=== PATIENT | male | born 1950 | race Caucasian/White ===

== ENCOUNTER 2017-11-04 11:42 | Inpatient (IN) | payer MEDICARE, OTHER ==
[2017-11-04] VITALS (10 sets, daily range): BP systolic 76–157; BP diastolic 57–98; Ht 170.2 cm; Wt 74.8 kg
[~2017-11-04] VITALS: Ht 170.2 cm; Wt 74.8 kg
[~2017-11-04 11:42] MED LIST: AMLODIPINE BESYL5 M1 PO; ATA25 PO; ATENOLOL25 MG PO; CAT0.1 PO; CLONIDINE HCL0.1 MG PO; FENOFIBRATE160 M1 PO; FERROUS SULFAT325 M2 PO; ISOSORBIDE MONO30 MG PO; KEFLEX500 MG PO; LAC PO; MIN10 PO; MIN2.5 PO; NEP PO; NOR5 PO; PHEDML PO; PHOSLO667 MG PO; SODIUM BICARBO650 MG PO; TEN50 PO; VITAMIN C500 M2 PO; ZES20 PO; ZITHROMAX TRI-500 MG PO
[2017-11-04 13:31] LABS: PLATELET COUNT 178 x10^3mcL (130-400)
[2017-11-04 13:47] LABS: BILIRUBIN TOTAL 0.76 mg/dL (0.20-1.00); CALCIUM 8.8 mg/dL (8.5-10.1); CARBON DIOXIDE 27.6 mmol/L (21-32); POTASSIUM SERUM 4.2 mmol/L (3.5-5.1)
[2017-11-04 13:49] LABS: ALBUMIN 3.2 g/dL (3.4-5.0); CREATININE SERUM 9.8 mg/dL (0.7-1.3); RED CELL DISTRIBUTION WIDTH 14.8 % (11.5-14.5); TOTAL PROTEIN, SERUM 8.5 g/dL (6.4-8.2)
[2017-11-04 13:59] LABS: BAND NEUTROPHIL 5 % (0-10); SEGMENTED NEUTROPHILS 72 % (37-75)
[2017-11-04 14:00] LABS: MONOCYTE 5 % (0-7); rbc morphology (normal/abnorm) NORMAL (NORMAL)
[2017-11-04 14:46] LABS: MAGNESIUM 2.3 mg/dL (1.8-2.4)
[2017-11-04 14:55] LABS: T3 TOTAL 0.43 ng/mL
[2017-11-04 14:56] LABS: FREE T4 0.75 ng/dL (0.76-1.46); FREE THYROXINE INDEX 1.5 ug/dL (1.4-4.5); T4(THYROXINE) 5.2 ug/dL (4.7-13.3)
[2017-11-04 15:48] LABS: FREE T4 0.75 ng/dL (0.76-1.46)
[2017-11-05] VITALS (19 sets, daily range): BP systolic 87–142; BP diastolic 54–84
[2017-11-05 05:29] LABS: RED CELL DISTRIBUTION WIDTH 14.4 % (11.5-14.5)
[2017-11-05 05:35] LABS: PLATELET COUNT 123 x10^3mcL (130-400)
[2017-11-05 05:44] LABS: CALCIUM 8.1 mg/dL (8.5-10.1); PHOSPHOROUS 4.2 mg/dL (2.5-4.9)
[2017-11-05 05:47] LABS: CREATININE SERUM 10.7 mg/dL (0.7-1.3)
[2017-11-05 10:52] LABS: ATYPICAL LYMPH 1 %; BAND NEUTROPHIL 13 % (0-10); BASOPHIL 0 % (0-2); MONOCYTE 2 % (0-7); PLATELET MORPHOLOGY PLATELETS DECREASED; SEGMENTED NEUTROPHILS 82 % (37-75); rbc morphology (normal/abnorm) ABNORMAL (NORMAL)
[2017-11-06] VITALS (16 sets, daily range): BP systolic 108–157; BP diastolic 40–72
[2017-11-06 05:20] LABS: BASOPHIL % 0.2 % (0-2); PLATELET COUNT 129 x10^3mcL (130-400); RED CELL DISTRIBUTION WIDTH 14.4 % (11.5-14.5)
[2017-11-06 05:34] LABS: CALCIUM 8.1 mg/dL (8.5-10.1); CARBON DIOXIDE 27.4 mmol/L (21-32); MAGNESIUM 1.6 mg/dL (1.8-2.4); PHOSPHOROUS 4.2 mg/dL (2.5-4.9); POTASSIUM SERUM 3.8 mmol/L (3.5-5.1)
[2017-11-06 05:37] LABS: CREATININE SERUM 8.1 mg/dL (0.7-1.3)
[2017-11-07] VITALS (14 sets, daily range): BP systolic 90–178; BP diastolic 37–103
[2017-11-07 05:30] LABS: BASOPHIL % 0.2 % (0-2); PLATELET COUNT 124 x10^3mcL (130-400); RED CELL DISTRIBUTION WIDTH 14.7 % (11.5-14.5)
[2017-11-07 05:39] LABS: CALCIUM 8.4 mg/dL (8.5-10.1); CARBON DIOXIDE 27.5 mmol/L (21-32); PHOSPHOROUS 4.3 mg/dL (2.5-4.9); POTASSIUM SERUM 3.7 mmol/L (3.5-5.1)
[2017-11-07 05:41] LABS: CREATININE SERUM 6.1 mg/dL (0.7-1.3)
[2017-11-07 11:00] LABS: CALCIUM 8.5 mg/dL (8.5-10.1); CARBON DIOXIDE 25.8 mmol/L (21-32); POTASSIUM SERUM 3.7 mmol/L (3.5-5.1)
[2017-11-07 11:08] LABS: CREATININE SERUM 6.8 mg/dL (0.7-1.3)
[2017-11-08 03:38] VITALS: BP 110/63
[2017-11-08 05:10] LABS: BASOPHIL % 0.3 % (0-2)
[2017-11-08 05:13] LABS: PLATELET COUNT 94 x10^3mcL (130-400); RED CELL DISTRIBUTION WIDTH 14.7 % (11.5-14.5)
[2017-11-08 05:19] LABS: CALCIUM 8.1 mg/dL (8.5-10.1); CARBON DIOXIDE 25.4 mmol/L (21-32); MAGNESIUM 2.2 mg/dL (1.8-2.4); PHOSPHOROUS 4.6 mg/dL (2.5-4.9); POTASSIUM SERUM 3.6 mmol/L (3.5-5.1)
[2017-11-08 05:20] LABS: CREATININE SERUM 8.2 mg/dL (0.7-1.3)
[2017-11-08 07:08] LABS: RED BLOOD CELLS 2.85 M/mm3 (4.52-5.90)
[2017-11-08 07:21] LABS: IRON 50 ug/dL (65-170)
[2017-11-08 07:23] LABS: TOTAL IRON BINDING CAPACITY 87 ug/dL (250-450)
[2017-11-08 07:30] VITALS: BP 144/73
[2017-11-08 11:27] VITALS: BP 140/78
[2017-11-08 15:11] VITALS: BP 118/63
[2017-11-08 15:51] VITALS: BP 113/64
[2017-11-08 20:27] VITALS: BP 100/48
[2017-11-09] VITALS (7 sets, daily range): BP systolic 137–159; BP diastolic 75–91
[2017-11-09 05:53] LABS: BASOPHIL % 0.3 % (0-2); RED CELL DISTRIBUTION WIDTH 14.3 % (11.5-14.5)
[2017-11-09 06:16] LABS: PLATELET COUNT 99 x10^3mcL (130-400)
[2017-11-09 06:28] LABS: CALCIUM 8.6 mg/dL (8.5-10.1); CARBON DIOXIDE 28.7 mmol/L (21-32); MAGNESIUM 2.1 mg/dL (1.8-2.4); PHOSPHOROUS 4.5 mg/dL (2.5-4.9); POTASSIUM SERUM 3.2 mmol/L (3.5-5.1)
[2017-11-09] MEDS ORDERED: LIPITOR80 MG PO (09:28)
[2017-11-09] MEDS ORDERED: CLOPIDOGREL75 M1 PO (09:29)
[2017-11-09] MEDS ORDERED: ECO81 PO (09:29)
[2017-11-09] MEDS ORDERED: TOPROL XL25 MG PO (09:31)
[2017-11-09] MEDS ORDERED: LEVAQUIN750 MG PO (09:34)
[2017-11-09] MEDS ORDERED: CLINDAMYCIN HC300 MG PO (09:35)
[2017-11-09] MEDS ORDERED: LAC PO (09:36)
[2017-11-09] MEDS ORDERED: FER300 PO (09:37)
[2017-11-09] MEDS ORDERED: NOR10 PO (09:38)
[2017-11-09] MEDS ORDERED: ROBDML PO (09:39)
== END 2017-11-09 21:40 | disposition home or self-care (01) | DRG 853 ==
LOC: ED 11:42 → IC 13:04 → DU 13:04 → IC 15:37 → DU 11-08 14:59
PROVIDERS: Emergency Medicine; Family Medicine; Internal Medicine Interventional Cardiology
PROC: 0BH17EZ Insertion of Endotracheal Airway into Trachea, Via Natural or Artificial Opening (ICD-10-PCS; 2017-11-04)
PROC: 5A2204Z Restoration of Cardiac Rhythm, Single (ICD-10-PCS; 2017-11-04)
PROC: 5A1945Z Respiratory Ventilation, 24-96 Consecutive Hours (ICD-10-PCS; 2017-11-04)
PROC: 05HM33Z Insertion of Infusion Device into Right Internal Jugular Vein, Percutaneous Approach (ICD-10-PCS; 2017-11-04)
PROC: B543ZZA Ultrasonography of Right Jugular Veins, Guidance (ICD-10-PCS; 2017-11-04)
PROC: 4A023N7 Measurement of Cardiac Sampling and Pressure, Left Heart, Percutaneous Approach (ICD-10-PCS; 2017-11-06)
PROC: B2151ZZ Fluoroscopy of Left Heart using Low Osmolar Contrast (ICD-10-PCS; 2017-11-06)
PROC: B2111ZZ Fluoroscopy of Multiple Coronary Arteries using Low Osmolar Contrast (ICD-10-PCS; 2017-11-06)
PROC: 027034Z Dilation of Coronary Artery, One Artery with Drug-eluting Intraluminal Device, Percutaneous Approach (ICD-10-PCS; principal; 2017-11-06 11:00)
DX: A41.9 Sepsis, unspecified organism (principal); R65.21 Severe sepsis with septic shock; J69.0 Pneumonitis due to inhalation of food and vomit; J96.00 Acute respiratory failure, unspecified whether with hypoxia or hypercapnia; I21.9 Acute myocardial infarction, unspecified; N18.6 End stage renal disease; I50.43 Acute on chronic combined systolic (congestive) and diastolic (congestive) heart failure; I13.2 Hypertensive heart and chronic kidney disease with heart failure and with stage 5 chronic kidney disease, or end stage renal disease; E44.0 Moderate protein-calorie malnutrition; I16.1 Hypertensive emergency; K92.2 Gastrointestinal hemorrhage, unspecified; I48.91 Unspecified atrial fibrillation; E11.22 Type 2 diabetes mellitus with diabetic chronic kidney disease; R59.0 Localized enlarged lymph nodes; E11.51 Type 2 diabetes mellitus with diabetic peripheral angiopathy without gangrene; E04.1 Nontoxic single thyroid nodule; D64.9 Anemia, unspecified; D69.6 Thrombocytopenia, unspecified; E78.5 Hyperlipidemia, unspecified; E03.9 Hypothyroidism, unspecified; Z99.2 Dependence on renal dialysis
CPT/HCPCS: CLHCL; 31500; 36556; 36600; 82962; 83880; 84439; 85378; 87804; C1769; C1876; C1887; C1894; C9113; J0153; J0456; J1265; J1327; J1642; J1644; J1940; J1956; J2001; J2250; J2270; J2543; J2704; J3010; J3475; J3490; J7030; J7040; J7050; J7620; Q0092; Q9967

== ENCOUNTER 2017-11-22 00:24 | Inpatient (IN) | payer MEDICARE, OTHER ==
[~2017-11-22] VITALS: Ht 167.6 cm; Wt 68.9 kg
[~2017-11-22 00:24] MED LIST changes: +CLINDAMYCIN HC300 MG PO; +CLOPIDOGREL75 M1 PO; +ECO81 PO; +FER300 PO; +LEVAQUIN750 MG PO; +LIPITOR80 MG PO; +NOR10 PO; +ROBDML PO; +TOPROL XL25 MG PO
[2017-11-22 00:27] VITALS: Ht 167.6 cm; Wt 68.9 kg
[2017-11-22 01:43] LABS: BASOPHIL % 0.6 % (0-2); PLATELET COUNT 228 x10^3mcL (130-400); RED CELL DISTRIBUTION WIDTH 14.5 % (11.5-14.5)
[2017-11-22 02:15] LABS: BILIRUBIN TOTAL 0.39 mg/dL (0.20-1.00); CALCIUM 9.2 mg/dL (8.5-10.1); CARBON DIOXIDE 33.6 mmol/L (21-32); FREE T4 1.2 ng/dL (0.76-1.46); POTASSIUM SERUM 4.8 mmol/L (3.5-5.1); TOTAL PROTEIN, SERUM 7.1 g/dL (6.4-8.2)
[2017-11-22 02:20] LABS: ALBUMIN 2.9 g/dL (3.4-5.0); CREATININE SERUM 5.8 mg/dL (0.7-1.3)
[2017-11-22 03:31] LABS: PHOSPHOROUS 2.1 mg/dL (2.5-4.9)
[2017-11-22 03:32] LABS: CHOLESTEROL/HDL RATIO 2.3
[2017-11-22 03:36] LABS: FREE T4 1.19 ng/dL (0.76-1.46)
[2017-11-22 03:42] LABS: T3 TOTAL 1.15 ng/mL
[2017-11-22 03:55] VITALS: BP 133/63
[2017-11-22] MEDS ORDERED: ZOLOFT50 MG PO (05:00)
[2017-11-22 06:12] VITALS: BP 131/68
[2017-11-22] MEDS ORDERED: HYDROXYZINE HYD25 MG PO (06:35)
[2017-11-22] MEDS ORDERED: PHOSLO667 MG PO (06:43)
[2017-11-22] MEDS ORDERED: GOOD NEIGHBOR M25 MG PO (06:45)
[2017-11-22] MEDS ORDERED: NATURAL IRON65 MG PO (06:47)
[2017-11-22] MEDS ORDERED: PHARMASSURE VI500 MG PO (06:49)
[2017-11-22] MEDS ORDERED: CARVEDILOL3.125 M1 PO (06:50)
[2017-11-22 06:51] LABS: CALCIUM 9.5 mg/dL (8.5-10.1); CARBON DIOXIDE 32.5 mmol/L (21-32); MAGNESIUM 2.1 mg/dL (1.8-2.4); PHOSPHOROUS 1.8 mg/dL (2.5-4.9); POTASSIUM SERUM 4.7 mmol/L (3.5-5.1)
[2017-11-22 06:58] LABS: BASOPHIL % 0.7 % (0-2); PLATELET COUNT 223 x10^3mcL (130-400)
[2017-11-22 07:11] LABS: RED CELL DISTRIBUTION WIDTH 15.2 % (11.5-14.5)
[2017-11-22 07:18] LABS: CREATININE SERUM 6.3 mg/dL (0.7-1.3)
[2017-11-22 08:39] VITALS: BP 122/46
[2017-11-22 14:21] VITALS: BP 108/48
[2017-11-22 17:16] VITALS: BP 113/48
[2017-11-22 20:02] VITALS: BP 131/62
[2017-11-23 05:00] VITALS: BP 142/69
[2017-11-23 08:59] VITALS: BP 138/59
[2017-11-23 13:55] VITALS: BP 143/53
[2017-11-23 15:16] LABS: LIPASE 742 IU/L (73-393)
[2017-11-23 15:17] LABS: AMYLASE 239 U/L (25-115)
[2017-11-23 16:20] VITALS: BP 156/76
[2017-11-23 17:00] VITALS: BP 150/72
== END 2017-11-23 17:41 | disposition left against medical advice (07) | DRG 291 ==
LOC: ED 00:24 → DU 02:34
PROVIDERS: Emergency Medicine; Family Medicine Sports Medicine
DX: I13.2 Hypertensive heart and chronic kidney disease with heart failure and with stage 5 chronic kidney disease, or end stage renal disease (principal); N17.0 Acute kidney failure with tubular necrosis; K85.90 Acute pancreatitis without necrosis or infection, unspecified; N18.6 End stage renal disease; I50.43 Acute on chronic combined systolic (congestive) and diastolic (congestive) heart failure; E44.0 Moderate protein-calorie malnutrition; F41.1 Generalized anxiety disorder; E83.39 Other disorders of phosphorus metabolism; I25.10 Atherosclerotic heart disease of native coronary artery without angina pectoris; E11.51 Type 2 diabetes mellitus with diabetic peripheral angiopathy without gangrene; E78.5 Hyperlipidemia, unspecified; D64.9 Anemia, unspecified; I25.2 Old myocardial infarction; Z95.5 Presence of coronary angioplasty implant and graft; Z79.82 Long term (current) use of aspirin; Z68.25 Body mass index [BMI] 25.0-25.9, adult; Z99.2 Dependence on renal dialysis; Z53.29 Procedure and treatment not carried out because of patient's decision for other reasons
CPT/HCPCS: 83880; 84439; 86431; 87804; 90658; J1644; J7030; Q0092; Q0162

== ENCOUNTER 2018-07-19 02:24 | Inpatient (IN) | payer MEDICARE, OTHER ==
[2018-07-19] VITALS (8 sets, daily range): BP systolic 100–174; BP diastolic 41–106; Ht 170.2 cm; Wt 71.8 kg
[~2018-07-19] VITALS: Ht 170.2 cm; Wt 71.8 kg
[~2018-07-19 02:24] MED LIST changes: +CARVEDILOL3.125 M1 PO; +GOOD NEIGHBOR M25 MG PO; +HYDROXYZINE HYD25 MG PO; +NATURAL IRON65 MG PO; +PHARMASSURE VI500 MG PO; +ZOLOFT50 MG PO
[2018-07-19 04:17] LABS: BASOPHIL % 0.4 % (0-2); PLATELET COUNT 253 x10^3mcL (130-400)
[2018-07-19 04:27] LABS: ALBUMIN 3.1 g/dL (3.4-5.0); ALKALINE PHOSPHATASE 80 U/L (46-116); ALT/SGPT 29 U/L (16-63); AST/SGOT 43 U/L (15-37); BILIRUBIN TOTAL 0.75 mg/dL (0.20-1.00); CALCIUM 7.7 mg/dL (8.5-10.1); CARBON DIOXIDE 22.3 mmol/L (21-32); CHLORIDE SERUM 97 mmol/L (98-107); FREE T4 0.95 ng/dL (0.76-1.46); GFR1 7 mL/min; GLUCOSE SERUM 198 mg/dL (74-106); LIPASE 293 IU/L (73-393); POTASSIUM SERUM 3.2 mmol/L (3.5-5.1); SODIUM SERUM 138 mmol/L (136-145); TOTAL PROTEIN, SERUM 7.4 g/dL (6.4-8.2)
[2018-07-19 04:29] LABS: CREATININE SERUM 8.6 mg/dL (0.7-1.3)
[2018-07-19 04:52] LABS: MAGNESIUM 2.3 mg/dL (1.8-2.4)
[2018-07-19 04:55] LABS: CHOLESTEROL/HDL RATIO 3.3; T3 TOTAL 0.78 ng/mL
[2018-07-19 04:57] LABS: FREE T4 0.93 ng/dL (0.76-1.46); FREE THYROXINE INDEX 2.7 ug/dL (1.4-4.5); T4(THYROXINE) 7.8 ug/dL (4.7-13.3)
[2018-07-19 11:00] LABS: PLATELET COUNT 238 x10^3mcL (130-400)
[2018-07-19 11:06] LABS: RED CELL DISTRIBUTION WIDTH 15.7 % (11.5-14.5)
[2018-07-19 11:37] LABS: CALCIUM 8.2 mg/dL (8.5-10.1); CARBON DIOXIDE 25.6 mmol/L (21-32); MAGNESIUM 2.1 mg/dL (1.8-2.4); PHOSPHOROUS 5.4 mg/dL (2.5-4.9); POTASSIUM SERUM 3.8 mmol/L (3.5-5.1)
[2018-07-19 11:43] LABS: CREATININE SERUM 8.6 mg/dL (0.7-1.3)
[2018-07-19] MEDS ORDERED: IPRATROPIUM BROM3 M2 HHN (12:00)
[2018-07-19] MEDS ORDERED: PROT40I IV (12:01)
[2018-07-19] MEDS ORDERED: [UNRECOGNIZED DRUG - OTHER] IV (12:05)
[2018-07-19] MEDS ORDERED: VANCOMYCIN PER PHARM MC (12:06)
[2018-07-19] MEDS ORDERED: HEP5I IV (12:10)
[2018-07-19] MEDS ORDERED: HEP100I IV (12:10)
[2018-07-19 12:41] LABS: MONOCYTE 1 % (0-7); SEGMENTED NEUTROPHILS 93 % (37-75)
[2018-07-19 12:42] LABS: BAND NEUTROPHIL 0 % (0-10); BASOPHIL 0 % (0-2); rbc morphology (normal/abnorm) ABNORMAL (NORMAL)
== END 2018-07-19 13:30 | disposition short-term general hospital (02) | DRG 280 ==
LOC: ED 02:24 → IC 04:08
PROVIDERS: Emergency Medicine; Internal Medicine
PROC: 5A1935Z Respiratory Ventilation, Less than 24 Consecutive Hours (ICD-10-PCS; principal; 2018-07-19)
PROC: 0BH17EZ Insertion of Endotracheal Airway into Trachea, Via Natural or Artificial Opening (ICD-10-PCS; 2018-07-19)
PROC: 05HM33Z Insertion of Infusion Device into Right Internal Jugular Vein, Percutaneous Approach (ICD-10-PCS; 2018-07-19)
PROC: B543ZZA Ultrasonography of Right Jugular Veins, Guidance (ICD-10-PCS; 2018-07-19)
PROC: 04HL33Z Insertion of Infusion Device into Left Femoral Artery, Percutaneous Approach (ICD-10-PCS; 2018-07-19)
DX: I21.3 ST elevation (STEMI) myocardial infarction of unspecified site (principal); N18.6 End stage renal disease; J96.00 Acute respiratory failure, unspecified whether with hypoxia or hypercapnia; J69.0 Pneumonitis due to inhalation of food and vomit; I46.2 Cardiac arrest due to underlying cardiac condition; E87.2 Acidosis; E44.0 Moderate protein-calorie malnutrition; I12.0 Hypertensive chronic kidney disease with stage 5 chronic kidney disease or end stage renal disease; E11.22 Type 2 diabetes mellitus with diabetic chronic kidney disease; E11.65 Type 2 diabetes mellitus with hyperglycemia; I48.91 Unspecified atrial fibrillation; E87.6 Hypokalemia; E83.39 Other disorders of phosphorus metabolism; I25.10 Atherosclerotic heart disease of native coronary artery without angina pectoris; Z99.2 Dependence on renal dialysis; Z68.24 Body mass index [BMI] 24.0-24.9, adult; Z95.5 Presence of coronary angioplasty implant and graft
CPT/HCPCS: 36556; 36600; 82962; 83880; 84439; C9113; G0480; J0456; J0610; J1644; J1815; J2250; J2543; J2997; J3010; J3370; J3480; J3490; J7040; J7613; J7620; Q0092